=== PATIENT | male | born 1980 | race Caucasian/White ===

== ENCOUNTER → 2017-10-25 09:26 | Outpatient (POV) | payer MEDICAID, SELFPAY | PROVIDERS: Family Provider Internal Medicine Adolescent Medicine; PCP Internal Medicine Adolescent Medicine; Visit Provider Internal Medicine | DX: Z00.00 Encounter for general adult medical examination without abnormal findings (principal) ==

== ENCOUNTER 2018-02-28 13:36 | Inpatient (IN) ==
--- NOTE | 2018-02-28 13:46 | Emergency Department Note ---
ED Disposition Clinical Impression: Hypertension, Non-compliant patient, CAD (coronary artery disease), Unstable angina, Tobacco use disorder, Polycythemia Disposition: Still a Patient Condition on Discharge: Fair Referrals: Carlos Gutierrez MD [Primary Care Provider] - - Critical Care Critical Care Time: No Attestation: On , the high probability of a clinically significant, sudden or life threatening deterioration of the following system(s) required my full and direct attention, intervention and personal management. The time I documented below is in addition to time spent performing reported procedures but includes the following listed in this critical care notation. Medical Decision Making - Rangel Inquiry Pt receiving controlled substance: No Rangel was queried for this patient: No Vital Signs: 02/28/18 13:37 02/28/18 14:06 Temperature 97.3 F L Temperature Source Oral Pulse Rate [Left Radial] 74 72 Respiratory Rate 20 20 Blood Pressure [Right Arm] 140/96 135/78 Blood Pressure Mean [Right Arm] 110 97 Blood Pressure Source [Right Arm] Automatic Cuff Automatic Cuff Blood Pressure Position [Right Arm] Sitting Sitting 02 Sat by Pulse Oximetry 96 98 Oxygen Delivery Method Room Air - Lab Data Lab Results 02/28/18 13:45: WBC 7.1, RBC 6.61 H, Hgb 20.1 H*, Hct 65.0 H*, MCV 98.2 H, MCH 30.2, MCHC 30.8 L, RDW 15.2, Plt Count 185, MPV 7.8, Neut % (Auto) 74.1, Lymph % (Auto) 16.5, [place] % (Auto) 7.7, Eos % (Auto) 1.2, Baso % (Auto) 0.5, Neut # ( Auto) 5.2, Lymph # (Auto) 1.2, [place] # (Auto) 0.5, Eos # (Auto) 0.1, Baso # (Auto ) 0.0 02/28/18 13:45: Sodium 134 L, Potassium 4.5, Chloride 101, Carbon Dioxide 29, Anion Gap 8.5, BUN 15, Creatinine 0.97, Estimated Creat Clear 101, Estimated GFR 86, Est GFR ( Amer) 104, Glucose 115 H, Calcium 9.2 02/28/18 13:45: Troponin I < 0.02 02/28/18 13:45: Total Bilirubin 11.7 H, Direct Bilirubin 9.2 H, Indirect Bilirubin 2.5 H, AST 814 H*, Alkaline Phosphatase 236 H, Total Protein 6.6, Albumin 3.2 L 02/28/18 13:45: B-Natriuretic Peptide 30 Result diagrams: 02/28/18 13:45 02/28/18 13:45 Orders (Tests/Meds): ED MEDICATIONS Discontinued Medications Generic Name Dose Route Start Last Admin Trade Name Freq PRN Reason Stop Dose Admin Acetaminophen 1,000 mg 02/28/18 14:25 02/28/18 14:28 Tylenol 500mg Tablet PO 02/28/18 14:26 1,000 mg ONCE ONE Administration Aspirin 324 mg 02/28/18 13:42 02/28/18 13:52 Aspirin 81mg Chewable Tablet PO 02/28/18 13:43 324 mg ONCE ONE Administration Nitroglycerin 0.4 mg 02/28/18 13:42 Nitrostat 0.4mg Sl Tablet SL 03/01/18 13:42 Q5MINP PRN Chest Pain Nitroglycerin 0.5 gm 02/28/18 13:44 02/28/18 13:52 Nitroglycerin 1 Inch Oint Udp TD 02/28/18 13:45 0.5 gm ONCE ONE Administration ORDERS Category Date Time Status Liver Panel Stat Lab 02/28/18 13:45 Results Troponin I Stat Lab 02/28/18 13:45 Ordered ECG Request by /Parker Stat Y 02/28/18 13:42 Stop Req - Radiology Data #1 Image(s): Chest Image Reviewed: Yes I reviewed the patient's radiology image, Yes I have reviewed radiologist's interpretation Preliminary Findings: Normal/NAD IMPRESSION: No acute finding - ECG Data Tracing #1 Normal sinus rhythm 82/min T-wave inversion in lead I and AV L, Q-wave in anterior leads, no acute findings ECG initial impression date: 02/28/18 ECG initial impression time: 13:30 Medical Decision Narrative: Patient was given aspirin and started nitroglycerin paste his chest pain was reduced to 5/10, he complained of a headache was given Tylenol. [id number] Villa's office spoke with Sangita for admission. Chest Pain HPI - General Chief Complaint: Chest Pain Stated Complaint: Chest pain Time Seen by Provider: 02/28/18 13:45 Mode of Arrival: Ambulatory Limitations: No Limitations Description of Symptoms (Recalled from ER Triage Doc. by RN): PT c/o mid chest pain that started two weeks ago that he thought was more stomach problems but it has not gotten any better, has been more weaker than normal. Denies any arm numbness or tingless or any SOA - History of Present Illness HPI narrative: 38 years old white male smoker with history of coronary artery disease and history of a STEMI in 2016 that required stent. He has been experiencing aggressive retrosternal chest pain that is dull heavy in character worse with exertion and relieved by rest. He did not take his aspirin today neither he tried nitroglycerin. He denies having exertional dyspnea or palpitations. He has been consuming Tums with no relief. MD complaint: chest pain indicative of cardiac Duration: constant Activity at onset: during exertion Pain location: substernal Severity: moderate Quality: dull Pain radiation: none Relieving factors: rest Exacerbating factors: exertion Treatments prior to or on arrival for Cardiac Chest Pain: none - Related Data Home Medications Medication Instructions Recorded Confirmed aspirin 81 mg tablet,delayed 81 mg PO DAILY tab 12/14/17 02/28/18 release carvedilol 6.25 mg tablet 6.25 mg PO BID 12/14/17 02/28/18 furosemide 20 mg tablet 20 mg PO .three times a week tab 12/14/17 02/28/18 losartan 50 mg tablet 50 mg PO DAILY tab 12/14/17 02/28/18 pravastatin 40 mg tablet 40 mg PO QHS 12/14/17 02/28/18 spironolactone 25 mg tablet 25 mg PO QAM 12/14/17 02/28/18 Allergies Allergy/AdvReac Type Severity Reaction Status Date / Time meperidine [From DEMEROL] Allergy Unknown Verified 02/28/18 13:42 promethazine [From PHENERGAN] Allergy Unknown Verified 02/28/18 13:42 [facility] [place] History I have reviewed the patient's past medical history: Yes - Social History Smoking Status: Current every day smoker Alcohol Intake: never - Psychiatric History Expresses thoughts of harming self/others: None Suicide Plan Description: No Plan ROS Obtained: Yes All systems reviewed & no additional complaints Physical Exam - General General appearance: alert, in no apparent distress - Head Head exam: atraumatic, normocephalic, normal inspection - Eye Eye exam: Present: normal appearance, PERRL, EOMI - ENT ENT exam: Present: normal exam, normal oropharynx, mucous membranes moist, TM's normal bilaterally, normal external ear exam, other (Bilateral pedis to the earlobe. ) - Neck Neck exam: Present: normal inspection, full ROM, trachea midline. Absent: meningismus, lymphadenopathy - Chest Chest inspection: Present: normal inspection, symmetric chest wall rise. Absent : tenderness - Respiratory Respiratory exam: Present: normal lung sounds bilaterally. Absent: respiratory distress - Cardiovascular Cardiovascular exam: Present: regular rate, normal rhythm. Absent: JVD - Abdominal Exam Abdominal exam: Present: soft, normal bowel sounds. Absent: distention, tenderness, guarding - Extremities Exam Extremities exam: Present: normal inspection, full ROM, normal capillary refill. Absent: calf tenderness - Back Exam Back exam: Present: normal inspection. Absent: tenderness - Neurological Exam Neurological exam: Present: alert, oriented X3, CN II-XII intact, motor sensory deficit, reflexes normal - Psychiatric Psychiatric exam: Present: normal affect, normal mood - Skin Skin exam: Present: warm, dry, intact, normal color, other (Skin freckles.)
[2018-02-28 14:07] LABS: Basophils % 0.5 % (0.1-2.0); Eosinophils # 0.1 K/mm3 (0.0-0.4); Eosinophils % 1.2 % (0.1-12.0); Lymphocytes # 1.2 K/mm3 (0.7-4.5); Lymphocytes % 16.5 K/mm3 (10-50); Mean Corpuscular HGB Conc 30.8 g/dL (31.8-35.4); Mean Corpuscular Hemoglobin 30.2 pg (27.0-31.2); Mean Corpuscular Volume 98.2 fl (80-94); Mean Platelet Volume 7.8 fl (7.4-10.4); Monocytes # 0.5 K/mm3 (0.1-1.0); Monocytes % 7.7 % (1.7-9.3); Neutrophils # 5.2 K/mm3 (1.8-7.8); Neutrophils % 74.1 % (37.0-80.0); Platelet Count 185 K/mm3 (142-424); Red Blood Count 6.61 M/mm3 (4.60-6.20); Red Cell Distribution Width 15.2 % (11.5-17.5); White Blood Count 7.1 K/mm3 (4.8-10.8)
[2018-02-28 14:09] LABS: Anion Gap 8.5 mEq/L (5-15); Calcium 9.2 mg/dL (8.5-10.1)
[2018-02-28 14:11] LABS: Hemoglobin 20.1 g/dL (14.1-18.0)
[2018-02-28 14:16] LABS: Potassium 4.5 mmoL/L (3.5-5.1)
[2018-02-28 14:42] LABS: Bilirubin,Direct 9.2 mg/dL (0.0-0.2); Bilirubin,Indirect 2.5 mg/dL (0.0-0.9); Bilirubin,Total 11.7 mg/dL (0.2-1.0)
[2018-02-28 14:43] LABS: Albumin Level 3.2 gm/dL (3.4-5.0); Total Protein,Serum 6.6 gm/dL (6.4-8.2)
--- NOTE | 2018-02-28 16:06 | Pharmacy Consult Notes ---
[facility] Pharmacy VTE Monitoring - Patient Demographics Admission date: 02/28/18 Report Date: 02/28/18 Time: 16:06 Allergies/Adverse Reactions: Patient Allergies meperidine [From DEMEROL] Allergy (Unknown, Verified 02/28/18 13:42) promethazine [From PHENERGAN] Allergy (Unknown, Verified 02/28/18 13:42) Height: 1.75 m Weight: 67.642 kg Patient Problems: Current Active Problems Non-compliant patient (Acute) CAD (coronary artery disease) (Acute) Unstable angina (Acute) Tobacco use disorder (Acute) Polycythemia (Acute) Hypertensive disorder (Acute) - VTE Risk Labs: VTE Related Lab Results Hgb 20.1 g/dL (14.1-18.0) H* 02/28/18 13:45 Hct 65.0 % (42.0-52.0) H* 02/28/18 13:45 Plt Count 185 K/mm3 (142-424) 02/28/18 13:45 BUN 15 mg/dL (7-18) 02/28/18 13:45 Creatinine 0.97 mg/dL (0.70-1.30) 02/28/18 13:45 Estimated Creat Clear 101 mL/min (0-300) 02/28/18 13:45 Was VTE Risk Assessment Performed: Yes VTE Score: 2 Clinical Trial Participant: No - Prophylaxis VTE Prophylaxis Ordered?: Yes Types of VTE Prophylaxis: TEDS Knee High
--- NOTE | 2018-02-28 16:41 | History & Physical Report ---
*Admission Date: 02/28/18 *Chief complaint: chest pain *History of present illness: 38 year old male with history of STEMI with stenting in 01/2016 and CHF with EF 30% presented to the ED with a 2 week history of chest pain. Patient reports chest pain occurs at random times and has no exertional correlation. He does has some exertional shortness of breath that is at baseline. In the ED, EKG was at baseline and Cardiac enzymes were found to be normal. Liver enzymes were significantly elevated, AST 814, ALT 1818. Patient denies ETOH or drug use. He was admitted for serial enzymes and cardiology consult. [facility] History I have reviewed the patient's past medical history: Yes Medical History: Reports:: Atherosclerotic Heart Disease, Congestive Heart Failure, Hyperlipidemia, Hypertension, Myocardial Infarction Denies:: Cancer, Diabetes Mellitus Type 1, Diabetes Mellitus Type 2, MRSA Other Surgeries: Yes: Cardiac Catheterization, Coronary Stent Amputation: No Fractures: Yes - *Social History Educational Level: Completed High School Smoking Status: Current every day smoker # Packs/Day (cigarettes): 1 #Yrs smoked (if former smoker): 20 Alcohol Intake: never Occupational Status: disabled Housing: house Household Members: family, children - Psychiatric History Expresses thoughts of harming self/others: None Suicide Plan Description: No Plan Review of Systems - Review of Systems Review of systems:: pertinent systems reviewed and negative unless documented below - *Cardiovascular Reports chest pain Meds Home Medications Medication Instructions Recorded Confirmed Type aspirin 81 mg tablet,delayed 81 mg PO DAILY tab 12/14/17 02/28/18 History release carvedilol 6.25 mg tablet 6.25 mg PO BID 12/14/17 02/28/18 History furosemide 20 mg tablet 20 mg PO MOWEFR tab 12/14/17 02/28/18 History losartan 50 mg tablet 50 mg PO DAILY tab 12/14/17 02/28/18 History pravastatin 40 mg tablet 40 mg PO HS 12/14/17 02/28/18 History Spironolactone 25 mg PO DAILY 02/28/18 02/28/18 History Allergies Allergy/AdvReac Type Severity Reaction Status Date / Time meperidine [From DEMEROL] Allergy Unknown Verified 02/28/18 13:42 promethazine [From PHENERGAN] Allergy Unknown Verified 02/28/18 13:42 Exam Vital signs and Labs for Last 24 Hours: Temp Pulse Resp BP Pulse Ox 98.0 F 64 18 118/72 98 02/28/18 15:42 02/28/18 16:11 02/28/18 15:42 02/28/18 15:42 02/28/18 16:11 Laboratory Results - last 24 hr 02/28/18 13:45: WBC 7.1, RBC 6.61 H, Hgb 20.1 H*, Hct 65.0 H*, MCV 98.2 H, MCH 30.2, MCHC 30.8 L, RDW 15.2, Plt Count 185, MPV 7.8, Neut % (Auto) 74.1, Lymph % (Auto) 16.5, [place] % (Auto) 7.7, Eos % (Auto) 1.2, Baso % (Auto) 0.5, Neut # ( Auto) 5.2, Lymph # (Auto) 1.2, [place] # (Auto) 0.5, Eos # (Auto) 0.1, Baso # (Auto ) 0.0 02/28/18 13:45: Sodium 134 L, Potassium 4.5, Chloride 101, Carbon Dioxide 29, Anion Gap 8.5, BUN 15, Creatinine 0.97, Estimated Creat Clear 101, Estimated GFR 86, Est GFR ( Amer) 104, Glucose 115 H, Calcium 9.2 02/28/18 13:45: Troponin I < 0.02 02/28/18 13:45: Total Bilirubin 11.7 H, Direct Bilirubin 9.2 H, Indirect Bilirubin 2.5 H, AST 814 H*, ALT 1818 H*, Alkaline Phosphatase 236 H, Total Protein 6.6, Albumin 3.2 L 02/28/18 13:45: B-Natriuretic Peptide 30 I & O for Last 24 hours: Intake & Output 02/26/18 02/27/18 02/28/18 03/01/18 11:59 11:59 11:59 11:59 Weight 149 lb 2 oz Narrative: ALert and oriented x3. Poor dentition. Rate and rhythm regular. No LE edema. PUlses 2+ bilaterally. Lung sounds with scattered wheezes. Abdomen soft and nontender. Jaundice, + icterus H&P: Result - Labs Labs: Short CBC 02/28/18 Range/Units 13:45 WBC 7.1 (4.8-10.8) K/mm3 Hgb 20.1 H* (14.1-18.0) g/dL Hct 65.0 H* (42.0-52.0) % Plt Count 185 (142-424) K/mm3 BMP 02/28/18 13:45 Sodium 134 L Potassium 4.5 Chloride 101 Carbon Dioxide 29 BUN 15 Creatinine 0.97 Glucose 115 H Calcium 9.2 Cardiac Enzymes 02/28/18 Range/Units 13:45 Troponin I < 0.02 (0.00-0.06) ng/ml Liver Function 02/28/18 Range/Units 13:45 Total Bilirubin 11.7 H (0.2-1.0) mg/dL Direct Bilirubin 9.2 H (0.0-0.2) mg/dL AST 814 H* (15-37) U/L ALT 1818 H* (12-78) U/L Alkaline Phosphatase 236 H (46-116) U/L Albumin 3.2 L (3.4-5.0) gm/dL Assessment and Plan (1) Elevated liver enzymes Current visit: Yes Status: Acute Category: Medical Code(s): R74.8 - Abnormal levels of other serum enzymes (2) CAD (coronary artery disease) Current visit: Yes Status: Acute Category: Medical Code(s): I25.10 - Atherosclerotic heart disease of [place] coronary artery without angina pectoris (3) Hypertensive disorder Current visit: Yes Status: Acute Category: Medical Code(s): I10 - Essential (primary) hypertension (4) Non-compliant patient Current visit: Yes Status: Acute Category: Medical Code(s): Z91.19 - Patient's noncompliance with other medical treatment and regimen (5) Polycythemia Current visit: Yes Status: Acute Category: Medical Code(s): D75.1 - Secondary polycythemia (6) Tobacco use disorder Current visit: Yes Status: Acute Category: Medical Code(s): F17.200 - Nicotine dependence, unspecified, uncomplicated (7) Unstable angina Current visit: Yes Status: Acute Category: Medical Code(s): I20.0 - Unstable angina (8) Automatic implantable cardiac defibrillator in situ Current visit: No Status: Acute Category: Medical Code(s): Z95.810 - Presence of automatic (implantable) cardiac defibrillator (9) Congestive heart failure Current visit: No Status: Acute Category: Medical Code(s): I50.9 - Heart failure, unspecified - Assessment and plan all Dx Assessment and Plan for all problems:: Will obtain serial enzymes, echo and cardiology consult. Liver ultrasound and hepatitis panel added.
[2018-02-28 17:47] LABS: INR 1.17 (0.9-1.1)
[2018-02-28 19:33] LABS: Amphetamine/Metha Screen,Urine Negative ng/mL (<1000); Barbiturates Screen,Urine Negative ng/mL (<200); Benzodiazepines Screen,Urine Negative ng/mL (200); Cannabinoid Screen,Urine Negative ng/mL (<50); Cocaine Screen,Urine Negative ng/g (<300); Methadone Screen,Urine Negative ng/mL (<300); Opiate Screen,Urine Positive ng/mL (<300); Phencyclidine Screen,Urine Negative ng/mL (<25)
--- NOTE | 2018-02-28 21:01 | Cardiology Report ---
PROCEDURE: 2-D M-mode and color Doppler study INDICATIONS FOR THE TEST: Chest pain+ COPD Heart Murmur Tobacco Smoking+ Palpitations Fatigue Syncope Edema Hypertension+Diabetes Mellitus Rheumatic Fever SOB DILLARD+Obesity Hyperlipidemia+ Family History HD Additional History Hx of STEMI and stents 2016, EF 25-30% 2017, Defibrillator PATIENT INFORMATION HEIGHT:69 WEIGHT:149 GENDER: Male B/P:142/68 2-D/M-MODE INTERPRETATION: 2-D MEASUREMENTS OBSERVED VALUES IN CMS Right Ventricular Dimension (RVDd) 2.0 Interventricular Septum (Thickness)(IVsd) 0.8 Left Ventricular Internal Dimensions(LVIDd) 5.1 Left Ventricular Posterior Wall (Thickness)(LVPWd) 0.9 Aortic Root 2.6 Aortic Cusp Separation 2.0 Left Atrial Dimensions (LAD) 3.1 2D 1. Left atrium is qualitatively mildly enlarged, left ventricle is normal size, there is mild concentric left ventricular hypertrophy, visually estimated ejection fraction approximately 25%, there is marked hypokinesis involving mid to distal septum, anterior, anteroapical and apical wall. 2. The right atrium and right ventricle are normal size and contractility, there is an AICD seen in the right ventricle. 3. The aortic valve is minimally thickened and fibrosed. 4. The mitral and tricuspid valve leaflets are minimally thickened. 5. The pulmonic valve is poorly visualized. 6. No significant pericardial effusion noted. DOPPLER INTERROGATION: Doppler interrogation of the aortic, mitral and tricuspid valvular presence of mild mitral and tricuspid regurgitation, tricuspid and jet velocity is insufficient for calculation of the right ventricular systolic pressure, grade 1 diastolic dysfunction seen with tissue Doppler evidence of raised left atrial pressure. CONCLUSION: 1. Qualitatively mildly enlarged atrium, normal left ventricular size, mild concentric left ventricular hypertrophy, visually estimated ejection fraction of 25% with segmental wall motion abnormality described above, grade 1 diastolic dysfunction seen with tissue Doppler evidence of raised left atrial pressure. 2. Mild mitral and tricuspid regurgitation 3. No significant pericardial effusion noted.
--- NOTE | 2018-03-01 08:00 | Consult Report ---
History of Present Illness Consult date: 03/01/18 Requesting physician: Carlos Gutierrez Consult reason: chest pain Chief complaint: chest pain Additional Medical History:: 1. Continued tobacco use A. COPD B. Secondary polycythemia 2. Hypertension 3. Hyperlipidemia 4. Coronary artery disease A. History of myocardial infarction, 2015, with subsequent PTCA and stenting , Dr. Landry, [place], [place] B. Lexiscan Myoview 10/2016, no ischemia with extensive anterior scar. Ejection fraction 25%. C. Echocardiogram, 10/2016, EF 30% with multiple wall motion abnormalities in the septal, anterior and anterolateral areas with mild MR and TR. D. AICD, 12/2016 5. History of traumatic right leg fracture, 10/2016, status post surgical correction 6. Elevated liver functions with jaundice, 02/2018 History of present illness: 38-year-old white male with known ischemic cardiomyopathy, AICD implantation and secondary polycythemia was admitted to the hospital with a two-week history of increasing episodes of chest pain at rest. Patient has limited activity due to discomfort in his right lower extremity from previous traumatic fracture and surgical correction. Reportedly needs to have the fixation screws removed but due to lack of insurance cannot have that done at this time. Symptoms of chest pain have been intermittent but progressive over the last 2 weeks. He does relate being without his medications for 2 weeks. He has noticed that his color has become yellowish as well as his color which is concerning to him. He denies any nausea, vomiting or diarrhea. He denies any weight loss. He denies any IV drug use or travel outside the [place]. Patient was seen in the emergency department and due to relief with sublingual nitroglycerin and nitroglycerin paste, abnormal EKG and cardiac history patient was admitted for further evaluation. Cardiac enzymes have returned normal 3. EKG showed sinus rhythm with previous anterior [place] without acute changes. Echocardiogram obtained this admission shows continued ischemic cardiomyopathy with EF of around 30%. No significant change from 1 year ago. BNP is 30 and chest x-ray shows no evidence of congestive heart failure. Elevated liver functions are noted with evidence of jaundice. Patient does not have any significant abdominal tenderness. Cardiology consulted for evaluation and recommendations regarding cardiac issues. [facility] History Medical History: Reports:: Atherosclerotic Heart Disease, Congestive Heart Failure, Hyperlipidemia, Hypertension, Myocardial Infarction Denies:: Cancer, Diabetes Mellitus Type 1, Diabetes Mellitus Type 2, MRSA Other Surgeries: Yes: Cardiac Catheterization, Coronary Stent Amputation: No Fractures: Yes - *Social History Educational Level: Completed High School Smoking Status: Current every day smoker # Packs/Day (cigarettes): 1 #Yrs smoked (if former smoker): 20 Alcohol Intake: never Occupational Status: disabled Housing: house Household Members: family, children - Psychiatric History Expresses thoughts of harming self/others: None Suicide Plan Description: No Plan Meds Home Medications Medication Instructions Recorded Confirmed Type aspirin 81 mg tablet,delayed 81 mg PO DAILY tab 12/14/17 02/28/18 History release carvedilol 6.25 mg tablet 6.25 mg PO BID 12/14/17 02/28/18 History furosemide 20 mg tablet 20 mg PO MOWEFR tab 12/14/17 02/28/18 History losartan 50 mg tablet 50 mg PO DAILY tab 12/14/17 02/28/18 History pravastatin 40 mg tablet 40 mg PO HS 12/14/17 02/28/18 History Spironolactone 25 mg PO DAILY 02/28/18 02/28/18 History Allergies Allergy/AdvReac Type Severity Reaction Status Date / Time meperidine [From DEMEROL] Allergy Unknown Verified 02/28/18 13:42 promethazine [From PHENERGAN] Allergy Unknown Verified 02/28/18 13:42 Review of Systems - *Cardiovascular Reports chest pain, Reports shortness of breath with activity - *Respiratory Reports shortness of breath with activity - *Gastrointestinal Denies abdominal pain, Denies loose stools, Denies vomiting - *Genitourinary Denies difficulty urinating - *Musculoskeletal Denies joint pain - *Neurologic Denies headache(s) Exam Vital signs and Labs for Last 24 Hours: Temp Pulse Resp BP Pulse Ox 97.3 F L 63 18 105/72 97 03/01/18 07:52 03/01/18 07:52 03/01/18 07:52 03/01/18 07:52 03/01/18 07:52 Laboratory Results - last 24 hr 02/28/18 13:45: WBC 7.1, RBC 6.61 H, Hgb 20.1 H*, Hct 65.0 H*, MCV 98.2 H, MCH 30.2, MCHC 30.8 L, RDW 15.2, Plt Count 185, MPV 7.8, Neut % (Auto) 74.1, Lymph % (Auto) 16.5, [place] % (Auto) 7.7, Eos % (Auto) 1.2, Baso % (Auto) 0.5, Neut # ( Auto) 5.2, Lymph # (Auto) 1.2, [place] # (Auto) 0.5, Eos # (Auto) 0.1, Baso # (Auto ) 0.0 02/28/18 13:45: Sodium 134 L, Potassium 4.5, Chloride 101, Carbon Dioxide 29, Anion Gap 8.5, BUN 15, Creatinine 0.97, Estimated Creat Clear 101, Estimated GFR 86, Est GFR ( Amer) 104, Glucose 115 H, Calcium 9.2 02/28/18 13:45: Troponin I < 0.02 02/28/18 13:45: Total Bilirubin 11.7 H, Direct Bilirubin 9.2 H, Indirect Bilirubin 2.5 H, AST 814 H*, ALT 1818 H*, Alkaline Phosphatase 236 H, Total Protein 6.6, Albumin 3.2 L 02/28/18 13:45: B-Natriuretic Peptide 30 02/28/18 13:45: PT 12.0 H, INR 1.17 H, APTT 32.0 02/28/18 13:45: Plasma/Serum Alcohol 0 02/28/18 16:34: Troponin I < 0.02 02/28/18 18:58: Urine Opiates Screen Positive H, Urine Methadone Screen Negative , Ur Barbituates Screen Negative, Ur Phencyclidine Scrn Negative, Ur Amphetamines Screen Negative, U Benzodiazepines Scrn Negative, Urine Cocaine Screen Negative, U Marijuana (THC) Screen Negative 02/28/18 19:40: Troponin I < 0.02 03/01/18 03:15: Troponin I < 0.02 I & O for Last 24 hours: Intake & Output 02/26/18 02/27/18 02/28/18 03/01/18 11:59 11:59 11:59 11:59 Intake Total 360 / 360 Output Total 300 / 300 Balance 60 / 60 Weight 150 lb - *Routine Neck Exam Absent: JVD, carotid bruit - *Routine Respiratory Exam Present: CTA bilaterally - *Routine Cardiovascular Exam Present: RRR. Absent: murmur, gallop - *Routine Abdominal Exam Present: soft. Absent: tenderness - *Routine Extremities Exam Absent: edema - *Routine Neurological Exam Present: alert, oriented X3, moving all extremities Assessment and Plan (1) Elevated liver enzymes Current visit: Yes Status: Acute Category: Medical Code(s): R74.8 - Abnormal levels of other serum enzymes (2) CAD (coronary artery disease) Current visit: Yes Status: Acute Category: Medical Code(s): I25.10 - Atherosclerotic heart disease of [place] coronary artery without angina pectoris (3) Hypertensive disorder Current visit: Yes Status: Acute Category: Medical Code(s): I10 - Essential (primary) hypertension (4) Non-compliant patient Current visit: Yes Status: Acute Category: Medical Code(s): Z91.19 - Patient's noncompliance with other medical treatment and regimen (5) Polycythemia Current visit: Yes Status: Acute Category: Medical Code(s): D75.1 - Secondary polycythemia (6) Tobacco use disorder Current visit: Yes Status: Acute Category: Medical Code(s): F17.200 - Nicotine dependence, unspecified, uncomplicated (7) Unstable angina Current visit: Yes Status: Acute Category: Medical Code(s): I20.0 - Unstable angina (8) Automatic implantable cardiac defibrillator in situ Current visit: No Status: Acute Category: Medical Code(s): Z95.810 - Presence of automatic (implantable) cardiac defibrillator (9) Congestive heart failure Current visit: No Status: Acute Category: Medical Code(s): I50.9 - Heart failure, unspecified - Assessment and plan all Dx Assessment and Plan for all problems:: 1. Resume Coreg and losartan due to ischemic cardiomyopathy. 2. Will discontinue statin due to elevated LFTs. 3. Therapeutic phlebotomy secondary to polycythemia felt secondary to smoking and COPD. 4. With normal troponins, unchanged EKG and Echo showing stable Cardiomyopathy , No further cardiac workup at this time. Follow up as outpatient. 5. No evidence of CHF by CXR or BNP.
--- NOTE | 2018-03-01 08:01 | Progress Note ---
Internal Medicine - PN: Subj *Date: 03/01/18 *Time: 07:58 Interval history: Patient reports that he had some chest pain through the night but was able to eat last night. He reports that he has been out for 2 weeks of all of his medications. Exam Vital signs and Labs for Last 24 Hours: Temp Pulse Resp BP Pulse Ox 97.3 F L 63 18 105/72 97 03/01/18 07:52 03/01/18 07:52 03/01/18 07:52 03/01/18 07:52 03/01/18 07:52 Laboratory Results - last 24 hr 02/28/18 13:45: WBC 7.1, RBC 6.61 H, Hgb 20.1 H*, Hct 65.0 H*, MCV 98.2 H, MCH 30.2, MCHC 30.8 L, RDW 15.2, Plt Count 185, MPV 7.8, Neut % (Auto) 74.1, Lymph % (Auto) 16.5, [place] % (Auto) 7.7, Eos % (Auto) 1.2, Baso % (Auto) 0.5, Neut # ( Auto) 5.2, Lymph # (Auto) 1.2, [place] # (Auto) 0.5, Eos # (Auto) 0.1, Baso # (Auto ) 0.0 02/28/18 13:45: Sodium 134 L, Potassium 4.5, Chloride 101, Carbon Dioxide 29, Anion Gap 8.5, BUN 15, Creatinine 0.97, Estimated Creat Clear 101, Estimated GFR 86, Est GFR ( Amer) 104, Glucose 115 H, Calcium 9.2 02/28/18 13:45: Troponin I < 0.02 02/28/18 13:45: Total Bilirubin 11.7 H, Direct Bilirubin 9.2 H, Indirect Bilirubin 2.5 H, AST 814 H*, ALT 1818 H*, Alkaline Phosphatase 236 H, Total Protein 6.6, Albumin 3.2 L 02/28/18 13:45: B-Natriuretic Peptide 30 02/28/18 13:45: PT 12.0 H, INR 1.17 H, APTT 32.0 02/28/18 13:45: Plasma/Serum Alcohol 0 02/28/18 16:34: Troponin I < 0.02 02/28/18 18:58: Urine Opiates Screen Positive H, Urine Methadone Screen Negative , Ur Barbituates Screen Negative, Ur Phencyclidine Scrn Negative, Ur Amphetamines Screen Negative, U Benzodiazepines Scrn Negative, Urine Cocaine Screen Negative, U Marijuana (THC) Screen Negative 02/28/18 19:40: Troponin I < 0.02 03/01/18 03:15: Troponin I < 0.02 I & O for Last 24 hours: Intake & Output 02/26/18 02/27/18 02/28/18 03/01/18 11:59 11:59 11:59 11:59 Intake Total 360 / 360 Output Total 300 / 300 Balance 60 / 60 Weight 150 lb Narrative: Patient is talkative, somewhat unpleasant which is his baseline. Heart rate regular. Lungs are clear. He remains jaundiced with a sallow complexion. Abdomen however is soft with no hepatosplenomegaly. Assessment and Plan (1) Elevated liver enzymes Current visit: Yes Status: Acute Category: Medical Code(s): R74.8 - Abnormal levels of other serum enzymes (2) CAD (coronary artery disease) Current visit: Yes Status: Acute Category: Medical Code(s): I25.10 - Atherosclerotic heart disease of [place] coronary artery without angina pectoris (3) Hypertensive disorder Current visit: Yes Status: Acute Category: Medical Code(s): I10 - Essential (primary) hypertension (4) Non-compliant patient Current visit: Yes Status: Acute Category: Medical Code(s): Z91.19 - Patient's noncompliance with other medical treatment and regimen (5) Polycythemia Current visit: Yes Status: Acute Category: Medical Code(s): D75.1 - Secondary polycythemia (6) Tobacco use disorder Current visit: Yes Status: Acute Category: Medical Code(s): F17.200 - Nicotine dependence, unspecified, uncomplicated (7) Unstable angina Current visit: Yes Status: Acute Category: Medical Code(s): I20.0 - Unstable angina (8) Automatic implantable cardiac defibrillator in situ Current visit: No Status: Acute Category: Medical Code(s): Z95.810 - Presence of automatic (implantable) cardiac defibrillator (9) Congestive heart failure Current visit: No Status: Acute Category: Medical Code(s): I50.9 - Heart failure, unspecified - Assessment and plan all Dx Assessment and Plan for all problems:: I think chest pain issues are from noncompliance of medication. New onset hepatitis-track liver enzymes today. Check viral serologies, bilirubin not elevated, Polycythemia-phlebotomy today.
[2018-03-01 08:09] LABS: Basophils % 0.6 % (0.1-2.0); Eosinophils # 0.1 K/mm3 (0.0-0.4); Eosinophils % 1.2 % (0.1-12.0); Hematocrit 58.6 % (42.0-52.0); Lymphocytes # 2.1 K/mm3 (0.7-4.5); Lymphocytes % 30.1 K/mm3 (10-50); Mean Corpuscular Volume 96.8 fl (80-94); Mean Platelet Volume 7.9 fl (7.4-10.4); Monocytes # 0.4 K/mm3 (0.1-1.0); Monocytes % 6.2 % (1.7-9.3); Neutrophils # 4.2 K/mm3 (1.8-7.8); Platelet Count 206 K/mm3 (142-424); Red Blood Count 6.05 M/mm3 (4.60-6.20); Red Cell Distribution Width 15.4 % (11.5-17.5); White Blood Count 6.8 K/mm3 (4.8-10.8)
[2018-03-01 08:23] LABS: Bilirubin,Total 11.1 mg/dL (0.2-1.0)
[2018-03-01 08:24] LABS: Albumin Level 2.7 gm/dL (3.4-5.0); Bilirubin,Indirect 2.3 mg/dL (0.0-0.9); Total Protein,Serum 5.7 gm/dL (6.4-8.2)
[2018-03-01 08:25] LABS: Bilirubin,Direct 8.8 mg/dL (0.0-0.2)
[2018-03-01 09:37] LABS: Albumin Level 2.8 gm/dL (3.4-5.0); Albumin/Globulin Ratio 0.9 (1.1-1.8); Anion Gap 9.9 mEq/L (5-15); Bilirubin,Total 11.2 mg/dL (0.2-1.0); Calcium 8.4 mg/dL (8.5-10.1); Total Protein,Serum 5.8 gm/dL (6.4-8.2)
[2018-03-01 09:52] LABS: Potassium 3.9 mmoL/L (3.5-5.1)
[2018-03-01 10:06] LABS: Hemoglobin 18.4 g/dL (14.1-18.0)
[2018-03-02 06:07] LABS: Basophils % 0.5 % (0.1-2.0); Eosinophils # 0.1 K/mm3 (0.0-0.4); Eosinophils % 1.4 % (0.1-12.0); Hematocrit 59.8 % (42.0-52.0); Lymphocytes # 1.6 K/mm3 (0.7-4.5); Lymphocytes % 23.8 K/mm3 (10-50); Mean Corpuscular HGB Conc 30.9 g/dL (31.8-35.4); Mean Corpuscular Hemoglobin 30.1 pg (27.0-31.2); Mean Corpuscular Volume 97.5 fl (80-94); Mean Platelet Volume 7.9 fl (7.4-10.4); Monocytes # 0.5 K/mm3 (0.1-1.0); Monocytes % 7.9 % (1.7-9.3); Neutrophils # 4.4 K/mm3 (1.8-7.8); Neutrophils % 66.4 % (37.0-80.0); Platelet Count 212 K/mm3 (142-424); Red Blood Count 6.14 M/mm3 (4.60-6.20); Red Cell Distribution Width 15.3 % (11.5-17.5); White Blood Count 6.7 K/mm3 (4.8-10.8)
[2018-03-02 06:23] LABS: Albumin Level 2.8 gm/dL (3.4-5.0); Albumin/Globulin Ratio 0.9 (1.1-1.8); Anion Gap 13.2 mEq/L (5-15); Bilirubin,Total 11.8 mg/dL (0.2-1.0); Calcium 8.4 mg/dL (8.5-10.1); Globulin 3.1 gm/dl (1.3-3.2); Potassium 4.2 mmoL/L (3.5-5.1); Total Protein,Serum 5.9 gm/dL (6.4-8.2)
[2018-03-02 06:24] LABS: Hemoglobin 18.6 g/dL (14.1-18.0)
[2018-03-02 11:17] LABS: Hepatitis B Core Antibody IgM Positive (Negative)
[2018-03-02 13:57] LABS: Hepatitis B Surface Antigen Positive (Negative); Hepatitis C Antibody <0.1 s/co ratio (0.0-0.9)
--- NOTE | 2018-03-02 15:30 | Discharge Summary ---
General - General Admission date:: 02/28/18 Discharge date: 03/02/18 HPI HPI: 38 year old male with history of STEMI with stenting in 01/2016 and CHF with EF 30% presented to the ED with a 2 week history of chest pain. Patient reports chest pain occurs at random times and has no exertional correlation. He does has some exertional shortness of breath that is at baseline. In the ED, EKG was at baseline and Cardiac enzymes were found to be normal. Liver enzymes were significantly elevated, AST 814, ALT 1818. Patient denies ETOH or drug use. He was admitted for serial enzymes and cardiology consult. Hospital Course Hospital Course: Patient was admitted for further evalution. Serial enzymes were obtained which were normal. Cardiology was consulted who does not feel his symptoms are cardiac in nature. Echo showed hypokinesis with EF 25% which is slightly worse than previous Echo. Patient pharmacy report reveals he has not taken his routine medications since last year. Liver US showed significant enlargement, cholecystitis and thickening of biliary ducts. (See radiology report for complete details.) Patient's diet was advanced and he had some postprandial nausea. Liver enzymes improved very little during his stay. Urine tox was + for opiates. ETOH level was normal. Coags were obtained and found to be normal, as well. Hep panel was obtained which was positive for Hepatitis B. His pain has improved and he desires to be discharged home. Discharge home with short term FU for endoscopic US. Differential to include biliary obstruction/tumor verses acute Hep B infection. Discussed the importance of refraining from opiate, etoh and tylenol use. Statin was discontinued. FU with Dr. Gutierrez on Tuesday. Labs prior to appointment. Objective Vital signs: Temp Pulse Resp BP Pulse Ox 97.0 F L 56 L 20 96/53 96 03/02/18 12:12 03/02/18 12:12 03/02/18 12:12 03/02/18 12:12 03/02/18 12:12 Narrative: Alert and oriented x3. Rate and rhythm regular. Lung sounds with scattered wheezing. Abdomen, soft nontender. Skin, jaundice. + icterus Results Labs on day of discharge: Labs from last 24 hours 03/02/18 03/02/18 02/28/18 05:20 05:20 19:40 WBC 6.7 RBC 6.14 Hgb 18.6 H* Hct 59.8 H MCV 97.5 H MCH 30.1 MCHC 30.9 L RDW 15.3 Plt Count 212 MPV 7.9 Neut % (Auto) 66.4 Lymph % (Auto) 23.8 [place] % (Auto) 7.9 Eos % (Auto) 1.4 Baso % (Auto) 0.5 Neut # (Auto) 4.4 Lymph # (Auto) 1.6 [place] # (Auto) 0.5 Eos # (Auto) 0.1 Baso # (Auto) 0.0 Sodium 136 Potassium 4.2 Chloride 101 Carbon Dioxide 26 Anion Gap 13.2 BUN 12 Creatinine 0.86 Estimated Creat Clear 110 Estimated GFR 98 Est GFR ( Amer) 119 Glucose 98 Calcium 8.4 L Total Bilirubin 11.8 H AST 645 H* ALT 1452 H* Alkaline Phosphatase 189 H Total Protein 5.9 L Albumin 2.8 L Globulin 3.1 Albumin/Globulin Ratio 0.9 L Hepatitis A IgM Ab Negative Hep Bs Antigen Positive A Hep B Core IgM Ab Positive A Hepatitis C Antibody <0.1 DS: Diagnosis - Discharge Diagnosis (1) Elevated liver enzymes Status: Acute (2) CAD (coronary artery disease) Status: Acute (3) Hypertensive disorder Status: Acute (4) Non-compliant patient Status: Acute (5) Polycythemia Status: Acute (6) Tobacco use disorder Status: Acute (7) Unstable angina Status: Acute (8) Automatic implantable cardiac defibrillator in situ Status: Acute (9) Congestive heart failure Status: Acute Discharge Plan - Patient Discharge Instructions ACTIVITY: Continue current activity DIET: other Additional Instructions: Low fat diet Patient Instructions: Angina - Follow up Plan Follow up with: Carlos Gutierrez MD [Primary Care Provider] - 03/06/18 Unknown provider or service follow up:: 03/02/18 11:[address] Nicole. Our office will schedule Disposition: Home, Self-Senior Care Medications: Home Medications Medication Instructions Recorded Confirmed Type aspirin 81 mg tablet,delayed 81 mg PO DAILY tab 12/14/17 02/28/18 History release Spironolactone 25 mg PO DAILY 02/28/18 02/28/18 History Prescriptions/Medication Reconciliation: New Carvedilol [Coreg 3.125mg Tablet] 3.125 mg PO BID #60 tab Lisinopril [Lisinopril 2.5mg Tab] 2.5 mg PO DAILY #30 tab Continue aspirin 81 mg tablet,delayed release 81 mg PO DAILY tab Spironolactone 25 mg PO DAILY Discontinued carvedilol 6.25 mg tablet 6.25 mg PO BID furosemide 20 mg tablet 20 mg PO MOWEFR tab losartan 50 mg tablet 50 mg PO DAILY tab pravastatin 40 mg tablet 40 mg PO HS Other Amb Orders: Comprehensive Metabolic Panel Time Frame: 03/06/18, Location: None Selected
== END 2018-03-02 15:01 | disposition home or self-care (01) ==
LOC: 2ND 13:36 → ER 13:36 → OBSVTOIN 15:00 → 2ND 15:31
PROVIDERS: ADMIT Internal Medicine Adolescent Medicine; ATTEND Internal Medicine Adolescent Medicine

== ENCOUNTER → 2018-03-06 10:06 | Outpatient (CLI) | payer SELFPAY ==
[2018-03-06 10:34] LABS: Albumin Level 2.9 gm/dL (3.4-5.0); Albumin/Globulin Ratio 0.9 (1.1-1.8); Alkaline Phosphatase 194 U/L (46-116); Anion Gap 6.9 mEq/L (5-15); Bilirubin,Total 8.6 mg/dL (0.2-1.0); Blood Urea Nitrogen 13 mg/dL (7-18); Calcium 8.3 mg/dL (8.5-10.1); Carbon Dioxide 30 mmol/L (21.0-32.0); Chloride 100 mmol/L (98-107); Creatinine,Serum 1.05 mg/dL (0.70-1.30); Estimated Glomerular Filt Rate 78 ml/min (>60); GFR (African American) 95 ML/MIN (>60); Globulin 3.2 gm/dl (1.3-3.2); Glucose 171 mg/dL (74-106); Potassium 4.9 mmoL/L (3.5-5.1); Sodium 132 mmol/L (136-145); Total Protein,Serum 6.1 gm/dL (6.4-8.2)
[2018-03-06 11:25] LABS: Aspartate Amino Transferase 542 U/L (15-37)
[2018-03-06 11:26] LABS: Alanine Aminotransferase 1290 U/L (12-78)
== END ==
PROVIDERS: Visit Provider Internal Medicine Adolescent Medicine
DX: I20.9 Angina pectoris, unspecified (principal)
CPT/HCPCS: 36415; 80053

== ENCOUNTER 2020-04-23 13:04 | Emergency (ER) | payer MEDICARE, SELFPAY ==
[2020-04-23 13:21] VITALS: BP 130/83; PULSE 74; RESP 14; TEMP 36.9; O2SAT 97; BMI 27.4
--- NOTE | 2020-04-23 13:27 | HMH.EDUTC ---
[facility] [place] Disposition Clinical Impression: Otitis media Qualifiers: Otitis media type: suppurative Chronicity: acute Laterality: bilateral Recurrence: non-recurrent Spontaneous tympanic membrane rupture: without spontaneous rupture Qualified Code(s): H66.003 - Acute suppurative otitis media without spontaneous rupture of ear drum, bilateral Disposition: Home, Self-Care Condition on Discharge: Good Instructions: Middle Ear Infection Additional Instructions: Drink plenty of fluids. Take tylenol or ibuprofen for pain or fever. Take the medications as directed. Follow up with your regular doctor. GO TO THE ER FOR ANY WORSENING SYMPTOMS Prescriptions: Amoxicillin/Potassium Clav [Augmentin 875-125 Tablet] 1 tab PO Q12H 10 Days #20 tab Transmission Status: Received by [id number] predniSONE [Deltasone 10mg tablet] 10 mg PO BID 3 Days #6 tab Transmission Status: Received by [id number] Referrals: Jessica Preston APRN [Primary Care Provider] - Time of Disposition: 13:34 Medical Decision Making - Medical Records Medical records reviewed: No: I reviewed the patient's medical records. - [place] Inquiry Pt receiving controlled substance: No Vital Signs: 04/23/20 13:21 04/23/20 13:40 Temperature 98.5 F 98.5 F Temperature Source Oral Pulse Rate 74 Pulse Rate [Right Brachial] 74 Respiratory Rate 14 14 Blood Pressure 130/83 Blood Pressure [Right Arm] 130/83 Blood Pressure Mean [Right Arm] 98 Blood Pressure Source [Right Arm] Automatic Cuff Blood Pressure Position [Right Arm] Sitting 02 Sat by Pulse Oximetry 97 Oxygen Delivery Method Room Air [facility] [place] HPI - General Stated complaint: ear pain Time Seen by Provider: 04/23/20 13:27 Mode of Arrival: Ambulatory Source of Information: Patient Limitations: No Limitations Description of Symptoms (Recalled from Triage Doc. by RN): PATIENT C/O NASAL/SINUS CONGESTION HEENT Symptoms (Recalled from RN notes): Yes Resp Symptoms (Recalled from RN notes): No Skin Symptoms (Recalled from RN notes): No MS Symptoms (Recalled from RN notes): No Functional Status (Recalled from RN notes): WNL - History of Present Illness Provider Complaint: He c/o bilateral ear pain (right worse than left) for the past 3 days. He states that he has allergies and it sometimes causes him to get ear infections and sinus infections. - Related Data Previous Rx's Medication Instructions Recorded Amoxicillin/Potassium Clav 1 tab PO Q12H 10 Days #20 tab 04/23/20 [Augmentin 875-125 Tablet] predniSONE [Deltasone 10mg tablet] 10 mg PO BID 3 Days #6 tab 04/23/20 Allergies Allergy/AdvReac Type Severity Reaction Status Date / Time meperidine [From DEMEROL] Allergy Unknown Verified 02/28/18 13:42 promethazine [From PHENERGAN] Allergy Unknown Verified 02/28/18 13:42 - Worker's Comp Is this a Worker's Comp case?: No [facility] History - Hepatitis A Screen Drug use history?: No High risk sexual behaviors?: No History of sexually transmitted infection?: No Currently employed?: No Childcare worker?: No Do you have indoor plumbing?: Yes Do you have electricity?: Yes Attestation statement:: This patient has been screened for Hepatitis A risk factors. I have reviewed the patient's past medical history: Yes Medical History: Reports:: Atherosclerotic Heart Disease, Congestive Heart Failure, Coronary Artery Disease, Hyperlipidemia, Hypertension, Internal Pacemaker (AICD), Myocardial Infarction Denies:: Cancer, Diabetes Mellitus Type 1, Diabetes Mellitus Type 2, MRSA Other Surgeries: Yes: Cardiac Catheterization, Coronary Stent, Pacemaker (AICD), Other (Leg Sx) Amputation: No Fractures: Yes - Social History Smoking Status: Current every day smoker Tobacco Type: cigarettes # Packs/Day (cigarettes): 1 #Yrs smoked (if former smoker): 20 Alcohol Intake: never Substance Use Type: denies use Occupational Status: other Housing: house Household Members: family, c
[2020-04-23 13:40] VITALS: BP 130/83; PULSE 74; RESP 14; TEMP 36.9; O2SAT 97
== END 2020-04-23 13:45 | disposition home or self-care (01) ==
PROVIDERS: Emergency Provider Nurse Practitioner Family; PCP Nurse Practitioner Family
DX: H66.003 Acute suppurative otitis media without spontaneous rupture of ear drum, bilateral (principal); I25.10 Atherosclerotic heart disease of native coronary artery without angina pectoris; E78.5 Hyperlipidemia, unspecified; I10 Essential (primary) hypertension; I25.2 Old myocardial infarction; Z95.0 Presence of cardiac pacemaker; F17.210 Nicotine dependence, cigarettes, uncomplicated; Z79.899 Other long term (current) drug therapy; Z88.5 Allergy status to narcotic agent
CPT/HCPCS: 99201

== ENCOUNTER 2021-03-18 19:00 | Emergency (ER) | payer MEDICARE, SELFPAY ==
[2021-03-18 19:09] VITALS: BP 147/97; PULSE 96; RESP 17; TEMP 36.7; O2SAT 99; BMI 23.4
[2021-03-18 19:19] VITALS: PULSE 96; RESP 18; TEMP 36.7; O2SAT 99; BMI 24.5
--- NOTE | 2021-03-18 19:34 | HMH.EDUTC ---
[facility] [place] Clinical Impression: Bee sting reaction Qualifiers: Encounter type: initial encounter Injury intent: undetermined intent Qualified Code(s): T63.444A - Toxic effect of venom of bees, undetermined, initial encounter Disposition: Home, Self-Care Condition on Discharge: Good Instructions: How to Care for an Insect Bite or Sting, Insect Bites and Stings, DI for Insect Bites and Stings Additional Instructions: If you have history of allergy to bee stings may want to keep Benadryl at home to help with reaction symptoms Over the counter Benadryl may help with itching and swelling associated with bee stings take as directed on package Return if needed Straight to ER if any life threatening symptoms Follow up with Family Doctor if needed Referrals: Jessica Preston APRN [Primary Care Provider] - As needed Time of Disposition: 20:35 Medical Decision Making - Rangel Inquiry Pt receiving controlled substance: No Arngel was queried for this patient: No Vital Signs: 03/18/21 19:09 03/18/21 19:19 03/18/21 19:53 Temperature 98.1 F 98.1 F 98 F Temperature Source Oral Oral Pulse Rate 92 H Pulse Rate [Left Brachial] 96 H 96 H Respiratory Rate 17 18 18 Blood Pressure 142/96 H Blood Pressure [Left Arm] 147/97 H Blood Pressure Mean [Left Arm] 113 Blood Pressure Source [Left Arm] Automatic Cuff Blood Pressure Position [Left Arm] Sitting 02 Sat by Pulse Oximetry 99 99 Oxygen Delivery Method Room Air Orders (Tests/Meds): ED MEDICATIONS Discontinued Medications Generic Name Dose Route Start Last Admin Trade Name Freq PRN Reason Stop Dose Admin Diphenhydramine HCl 25 mg 03/18/21 19:34 03/18/21 19:42 Diphenhydramine 50mg/Ml Vial IM 03/18/21 19:35 25 mg ONCE ONE Administration Famotidine 20 mg 03/18/21 19:34 03/18/21 19:43 Famotidine 20mg Tablet PO 03/18/21 19:35 20 mg ONCE ONE Administration Loratadine 10 mg 03/18/21 19:35 03/18/21 19:43 Loratadine 10mg Tablet PO 03/18/21 19:36 10 mg ONCE ONE Administration Methylprednisolone Sodium Succinate 125 mg 03/18/21 19:34 03/18/21 19:42 Methylprednisolone Sod Succ 125mg Vial IM 03/18/21 19:35 125 mg ONCE ONE Administration Medical Decision Narrative: After injection patient swelling improved and patient states that skin on back of head no longer felt tight and felt better Patient educated to take over the counter Benadryl as directed on package in the future if he gets stung by bee [facility] [place] - General Stated complaint: poss reaction to bee sting Time Seen by Provider: 03/18/21 19:34 Mode of Arrival: Ambulatory Source of Information: Patient Limitations: No Limitations Description of Symptoms (Recalled from Triage Doc. by RN): pt states he was stung multiple times at the base of his neck posteriorly and the base of his head. pt states hes allergic to bees but has not been stung in years. pts airway is patent no symptoms of respiratory distress. the areas are reddened and slightly swollen. HEENT Symptoms (Recalled from RN notes): No Resp Symptoms (Recalled from RN notes): No Skin Symptoms (Recalled from RN notes): Yes (bee sting) MS Symptoms (Recalled from RN notes): No Functional Status (Recalled from RN notes): na - History of Present Illness Provider Complaint: Patient states that he was weedeating when he got into a mess of bees and they stung him multiple times behind his right ear, on his shoulder and back States that it made him feel sick when they stung him but he hadnt been stung in years and use to be allergic so when he started having swelling he came in - Related Data Home Medications Medication Instructions Recorded Confirmed No Known Home Medications 03/18/21 03/18/21 Allergies Allergy/AdvReac Type Severity Reaction Status Date / Time meperidine [From DEMEROL] Allergy Unknown Verified 03/18/21 19:24 promethazine [From PHENERGAN] Allergy Unknown Verified 03/18/21 19
[2021-03-18 19:53] VITALS: BP 142/96; PULSE 92; RESP 18; TEMP 36.6
== END 2021-03-18 20:06 | disposition home or self-care (01) ==
LOC: ER 19:11 → UTC 19:14
PROVIDERS: Emergency Provider Nurse Practitioner; PCP Nurse Practitioner Family
DX: T63.441A Toxic effect of venom of bees, accidental (unintentional), initial encounter (principal); I25.10 Atherosclerotic heart disease of native coronary artery without angina pectoris; I25.2 Old myocardial infarction; E78.5 Hyperlipidemia, unspecified; I10 Essential (primary) hypertension; Z95.0 Presence of cardiac pacemaker; Z79.899 Other long term (current) drug therapy
CPT/HCPCS: G0463; 96372; 99202

== ENCOUNTER 2024-06-05 11:34 | Outpatient (CLI) | payer MEDICARE, SELFPAY ==
--- NOTE | 2024-06-05 11:43 | XR_ITS ---
FINAL REPORT CLINICAL HISTORY: right ankle hareware pain COMPARISON: None FINDINGS: RIGHT ANKLE 4 views of the right ankle were obtained. There is is an IM adolfo in the mid distal tibia. There is healed fracture deformity at the distal tibial diaphysis. There is an os trigonum that measures 5 mm in greatest dimension. The mortise is intact. Visualized joint spaces are normally aligned. Soft tissues are unremarkable. IMPRESSION: Healed fracture deformity distal tibia. Reviewed, Interpreted and Dictated by Johnny Moreno MD Transcribed by Toshia King Authenticated and [facility]
== END 2024-06-05 23:59 | disposition home or self-care (01) ==
LOC: RAD 11:37
PROVIDERS: Visit Provider Physician Assistant
DX: M25.571 Pain in right ankle and joints of right foot (principal)
CPT/HCPCS: 73610

== ENCOUNTER 2024-07-13 07:15 | Outpatient (CLI) | payer MEDICARE, SELFPAY ==
--- NOTE | 2024-07-13 | CA_ITS ---
APPROVED REPORT Exam: Pharmacologic Technologist: Madisyn Arreaga Ht: 5 ft 3 in Wt: 147 lbs BSA: 1.70 m2 HR: 65 bpm BP: 136/92 mmHg Rhythm: NSR, possible R atrial englargement, right axis deviation, old anterioral PA, ST-T abns inferiorly Medical History Cardiac Risk Factors: HTN, Hyperlipidemia, Smoking Stress Test Details HR Resting HR: 65 bpm Max Heart Rate (APMHR): 174.468142 bpm Target HR (85% APMHR): 147.991255 bpm Recovery HR: 84 bpm BP Resting BP: 136.0/92.0 mmHg Recovery BP: 133.0/81.0 mmHg ECG Resting ECG: NSR, possible R atrial englargement, right axis deviation, old anterlateral PA, ST-T abns inferiorly Stress ECG Conclusion During lexiscan pt had no symptoms. Rare PAC noted. No significant ST changes. Unremarkable lexiscan stress. Electronically signed by : Kelli Rothman MD 07/15/2024 20:41:16
--- NOTE | 2024-07-13 07:16 | CA_ITS ---
APPROVED REPORT EXAM: Comprehensive 2D, Doppler, and color-flow Echocardiogram Clip Wrapper: GEOVANNA Paige, RVS Ht: 5 ft 3 in Wt: 147lbs BSA: 1.70 BP: 164/90 mmHg Indications: CAD, Hx-CM, HFrEF, Pre-op assessment, AICD, Smoker Echo Enhancing Agent Comments: Patient IV access was terminated prior to echo-Patient declined IV/Contrast 2D Dimensions IVSd 1.40 cm M: 0.6-1.2 LVEF (Visual) 45.00 % PWd 0.88 cm M: 0.6 - 1.2 LA Volume 71.30 mL LVDd 5.12 cm M: 4.2 - 5.9 LA Volume Index 41.94 mL/m2 (M/F) 16-34 LVDs 3.72 cm M: 2.5 - 4.0 EF AP4 48.40 % GL Strain -11.2 % M-Mode Dimensions RVDd 2.13 cm (0.9-2.6) LA Diam 3.83 cm (1.9-4.0) LVDd 5.71 cm (3.5-5.7) LVDs 4.27 cm (3.5-5.7) IVSd 1.16 cm (0.6-1.1) PWd 1.04 cm (0.6-1.1) EF (Teich) 45.00% EPSs 0.44 cm FS 24.40% EDV (Teich) 156.80 mL TAPSE 1.87 (<1.7) ESV (Teich) 81.70 mL LV Diastology E Decel Time 180 (160-240 msec) E/A Ratio 1.23 MED A' 8.30 cm/s LAT A' 8.20 cm/s Aortic Valve TIBURCIO Index 1.58 cm2/m2 AoV Peak Rafael. 93.0 (50-130 cm/s) AO Peak GR. 3.50 mmHg AO Mean GR. 1.70 (<5 mmHg) AO VTI 20.4 (18-25 cm) TIBURCIO (VTI) 2.75 (2.5-4.5 cm2) Mitral Valve MV A Velocity 54.0 (40-130 cm/s) E/A Ratio 1.23 Tricuspid Valve TR P. Velocity 246.00 cm/s RAP Estimate 10.00 mmHg RVSP 34.30 mmHg Left Ventricle The left ventricle is normal size. The left ventricular systolic function is moderately to severely reduced. There is increased LV wall thickness. There is moderate to severe global hypokinesis present. The septal, inferoseptal, and anteroseptal LV morales, as well as the LV apex nearly akinetic. Grade 1 diastolic dysfunction is present. LVEF is 30%. Right Ventricle The right ventricle is normal size. The right ventricular systolic function is normal. There is a device lead in the right ventricle. Atria The left atrium size is normal. Right atrium is mildly dilated. There is no Doppler evidence of interatrial shunt. Aortic Valve The aortic valve opens well. There is no aortic valvular stenosis. No aortic regurgitation is present. Mitral Valve The mitral valve is normal in structure. No evidence of mitral valve stenosis. Mild mitral regurgitation. Tricuspid Valve The tricuspid valve leaflets are thin and pliable. Mild tricuspid regurgitation. RVSP is 20-25 mmHg. Pulmonic Valve The pulmonary valve is normal in structure. Trace pulmonic regurgitation. Great Vessels The aortic root is normal in size. The ascending aorta is not well-visualized. IVC is normal in size and collapses >50% with inspiration. Pericardium There is no pericardial effusion. Other Information Study Quality: Fair Conclusion Moderate to severe reduction in global LV systolic function (LVEF 30%). Moderate to severe global hypokinesis present. The septal, inferoseptal, and anteroseptal LV morales, as well as the LV apex nearly akinetic. Mild RV dilation. Mild TR, mild MR. Electronically signed by : Kelli Rothman MD 07/16/2024 13:01:04
--- NOTE | 2024-07-13 07:16 | NM_ITS ---
APPROVED REPORT Exam: Nuclear Stress Test Indication: chest pain..pre-op Patient Location: Outpatient Stress Tech: Madisyn JUNG Tech:Marta PerrinBEBA RT(R)(N) Ht: 5 ft 7 in Wt: 148 lbs HR: 62 bpm BP: 136/92 mmHg BSA: 1.78 m2 TID: 1.09 BMI: 23.1 History: chest pain..pre-op Procedure: Patient received 0.4 mg of intravenous Lexiscan, resting heart rate 62 bpm, resting blood pressure 136/92 mmHg, with Lexiscan maximum heart rate achieved was 102 bpm which is 85 % of the maximum predicted heart rate and blood pressure was 135/85 mmHg. With Lexiscan, patient denied any complaint of chest pain. Cardiac Stress and Resting SPECT Images: Cardiac Stress and Resting SPECT images were obtained using technetium 99m Myoview 25.9 mCi stress and 8.64 mCi at rest. Resting and stress imaging in supine and prone positions demonstrate large sized, severe, fixed perfusion defects in the anterior, septal, and anteroseptal, and anterolateral LV morales. There is also a severe perfusion defect in the LV apical wall. Gated imaging demonstrates severe reduction in LV systolic function. There is akinesis of the anterior and anteroseptal LV morales, as well as the LV apical wall. LVEF is calculated at 27%. Conclusion: Large sized, severe, fixed perfusion defects in the anterior, septal, and anteroseptal, and anterolateral LV morales. There is also a severe perfusion defect in the LV apical wall. Gated imaging demonstrates severe reduction in LV systolic function. There is akinesis of the anterior and anteroseptal LV morales, as well as the LV apical wall. LVEF is calculated at 27%. Electronically signed by : Kelli Rothman MD 07/15/2024 20:47:10
[2024-07-13] MEDS: ISOTOPE MYOVIEW (PER STUDY) 1 DOSE IV (09:49)
[2024-07-13] MEDS: REGADENOSON 0.4MG/5ML SYRINGE 0.4 MG IV (09:49)
[2024-07-13] MEDS: SODIUM CHLORIDE 0.9% 10ML SYR (RAD ONLY) 10 ML IV ×2 (09:49)
== END 2024-07-13 23:59 | disposition home or self-care (01) ==
LOC: RAD 07:16
PROVIDERS: PCP Nurse Practitioner Family; Visit Provider Nurse Practitioner Family
DX: I25.10 Atherosclerotic heart disease of native coronary artery without angina pectoris (principal); R07.9 Chest pain, unspecified
CPT/HCPCS: 78452; 93017; 93018; 93306; A9502; J2785